=== PATIENT | female | born 1960 | race Caucasian/White ===

== ENCOUNTER 2018-10-11 05:51 | Day surgery (SDC) | payer BC, OTHER ==
[2018-10-05 13:35] LABS: URINE BILIRUBIN NEGATIVE (Negative); URINE BLOOD NEGATIVE (Negative); URINE CLARITY CLEAR; URINE COLOR YELLOW; URINE GLUCOSE-RANDOM* NEGATIVE (Negative); URINE KETONES NEGATIVE (Negative); URINE LEUKOCYTES-REFLEX NEGATIVE (Negative); URINE NITRITE-REFLEX NEGATIVE (Negative); URINE PROTEIN (DIPSTICK) NEGATIVE (Negative); URINE UROBILINOGEN 0.2 E.U./dl (0.2-1.0)
[2018-10-05 13:36] LABS: HEMATOCRIT 40.6 % (37.0-47.0); HEMOGLOBIN 13.9 gm/dL (12.0-15.0); MCH 33.4 pg (26.0-34.0); MCHC 34.3 g/dL (28.0-37.0); MCV 97.3 fL (80.0-100.0); RBC 4.17 mil/uL (4.20-5.00); RDW 12.6 % (10.5-14.5); WBC 6.1 thou/uL (4.0-11.0)
[2018-10-05 13:45] LABS: CALCIUM 9.2 mg/dL (8.5-10.1); CREATININE 0.7 mg/dL (0.6-1.0); POTASSIUM 4.1 mmol/L (3.5-5.1)
[2018-10-05 13:47] LABS: PROTIME 10.3 Seconds (9.3-11.4)
--- NOTE | 2018-10-09 07:40 | EKG ---
[address] [address] ELECTROCARDIOGRAM REPORT Name: CIARRA SHABAZZTHIDung Razo Room #: PRE IN [facility]#: [id number] Admission: Attend Phys: Kameron Thompson MD Discharge: Date of : 60 Report #: [id number] THIS REPORT FOR: //name// [facility] Test Date: 2018-10-05 Test Time: 13:30:37 Pat Name: SOPHIE SHABAZZ Department: Room: Gender: F Physical Integration Practitioner: Ashutosh EDMOND : 1960 Requested By: Kameron Thompson Order Number: [id number] MD: Keith Muller Measurements Intervals [place] Rate: 64 P: 70 W[place]: 149 QRS: 21 QRSD: 75 T: 42 QT: 400 QTc: 413 Interpretive Statements Sinus rhythm Normal tracing No previous ECG available for comparison Electronically Signed On 10-09-2018 7:40:50 CDT by Keith Muller [email or web address] <ELECTRONICALLY SIGNED> By: Keith Muller MD, [facility] 10/09/18 0740 1330 1330 Keith Muller MD, FACC /EPI
[~2018-10-11] VITALS: Ht 165.1 cm; Wt 66.7 kg
--- NOTE | ~2018-10-11 | O ---
[facility] [place] [address] OPERATIVE REPORT Name: SOPHIE SHABAZZ Room #: 150-2 [facility]..#: [id number] Admission: 10/11/18 Attend Phys: Kameron Thompson MD Discharge: Date of : 60 Report #: [id number] THIS REPORT FOR: //name// CC: Thor Patel Kameron Thompson DATE OF SERVICE: 10/11/2018 PREOPERATIVE DIAGNOSIS: Left hip osteoarthritis. POSTOPERATIVE DIAGNOSIS: Left hip osteoarthritis. PROCEDURE: Left total hip arthroplasty. SURGEON: Kameron Thompson MD DIRECTOR OF PROGRAM MANAGEMENT: Flaca Dominguez PA-C INDICATIONS FOR DIRECTOR OF PROGRAM MANAGEMENT: Throughout the case, extensive retraction and manipulation of the hip was required including dislocation and reduction. This was afforded to me by my media assistant. ANESTHESIA: General endotracheal. IMPLANTS: [employer] size 12 high offset Synergy press fit stem, a size 52 R3 acetabular cup with one acetabular screw and a size 36, +4 Oxinium head. ESTIMATED BLOOD LOSS: 50 mL. COMPLICATIONS: None. SPECIMENS: None. CONDITION UPON LEAVING THE OPERATING ROOM: Stable. INDICATIONS FOR PROCEDURE: The patient is a 58-year-old female with severe left hip osteoarthritis who failed conservative measures for this and after discussion with her, she elected for left total hip arthroplasty. DESCRIPTION OF PROCEDURE: Risks, benefits, alternatives, complications were discussed in detail with the patient including but not limited to risk of anesthesia, risk of damage to nerves, arteries, blood vessels, risk for infection, bleeding, risk for continued hip pain, leg length discrepancy, instability and need for reoperation. Informed consent was obtained from the patient. Left hip was appropriately marked in the preoperative holding area. IV Ancef was given for preoperative antibiotics. She was brought to the [address] [address] OPERATIVE REPORT Name: SOPHIE SHABAZZ Room #: 150-2 [facility] Jayjay#: [id number] Admission: 10/11/18 Attend Phys: Kameron Thompson MD Discharge: Date of : 60 Report #: [id number] operating room and placed in supine position on operating room table. General anesthesia was induced without complication. She was then placed in the right lateral decubitus position with the left hip uppermost. Left hip and lower extremity were prepped and draped in normal sterile fashion. Timeout was performed properly identifying the patient and procedure as well as the instrumentation and implants. All in the operating room were in agreement. Standard posterior approach to the hip was made with 10 blade through the skin. Dissection was taken down to fascia with Bovie cautery and the fascia was cleaned off with Monk elevator. Fresh 10 blade was used to make a fascial incision. This was taken proximally and distally with curved Singh scissor. Charnley retractor was placed. Trochanteric bursa was taken down with Bovie cautery. Piriformis tendon was identified, tagged and taken down with Bovie cautery. Short external rotators were also taken down with Bovie cautery. Capsulotomy was made and capsule ends were tagged for later repair. Hip was dislocated and there was extensive osteoarthritic change of the femoral head. Femoral neck cut was made 1 cm proximal to lesser trochanter based on preoperative templating and the femoral head was removed. Deep acetabular retractors were placed. Labrum was removed sharply. Pulvinar was removed with Bovie cautery. Acetabulum was then sequentially reamed up to a size 52, at which point, there was excellent bleeding cancellous bone. There was a large acetabular cyst in the superior anterior acetabulum. This was curetted out and bone grafted with reamings. A size 51 trial cup was placed, found to have a good fit. A final size 52 R3 acetabular cup was placed and seated. One acetabular screw was placed for backup fixation and the liner for a 36 head was placed. There were circumferential osteophytes around the acetabulum. These were removed with the curved osteotome. After this, attention was turned to the femur. This was reamed and broached up to a size 12, at which point a size 12 broach was stable, was trialed with a high offset neck and a 36+0 head. Hip was reduced, taken through range of motion, found to be stable, found to have somewhat short leg length on the left compared to the right. It was felt we could make up for this with the final implant. Hip was dislocated and broach was removed. A final size 12 high offset Synergy press fit stem was placed and seated. This was then trialed with a 36+4 head. Hip was reduced, taken through range of motion, found to be stable, found to have equal leg lengths. Hip was dislocated one last time and the trial head was removed. Final size 36, +4 Oxinium head was placed. Hip was reduced, taken through range of motion, found to be stable, found to have equal leg lengths. The hip was thoroughly irrigated with normal saline. A periarticular injection consisting of morphine, ropivacaine, epinephrine, Toradol was placed around the hip joint capsule. A gram of vancomycin was placed deep in the joint. The capsule and piriformis were repaired with 0 FiberWire. Fascia was closed with 0 Vicryl, skin was closed with 2-0 Vicryl, 3-0 Monocryl. Dermabond and a JAY dressing was [address] [place] [address] OPERATIVE REPORT Name: SOPHIE SHABAZZ Room #: 150-2 [facility] M.R.#: [id number] Admission: 10/11/18 Attend Phys: Kameron Thompson MD Discharge: Date of : 60 Report #: [id number] applied. The patient tolerated this procedure well and went to recovery room under care of anesthesia postoperatively. By: 0910 Kameron Thompson MD /nt
[~2018-10-11 05:51] MED LIST: ACCUNEB SO1.25 MG/1 INH; ADVAIR HFA 230M12 GM INH; CBD OIL TRANSDERM; FLONASE 0.05%50 MCG NASAL; SINGULAIR 10 MG10 M1 PO; VITAMIN D2000 UNIT PO
[2018-10-11 06:28] VITALS: BP 150/85
--- NOTE | 2018-10-11 16:51 | NUR ---
1120; ARRIVED TO FLOOR FROM PACU AWAKE, ALERT AND ORIENTED X 4. REASSESSMENT COMPLETED. PATIENT HAS NOT NEEDED ANY PAIN MEDICINE THIS AFTERNOON. TOLERATING DIET. VOIDED 200 ML WITHOUT DIFFICULTY. WALKED WITH PHYSICAL THERAPY AND GOT THE OK TO DISCHARGE HOME. PATIENT HAS ALREADY FILLED PRESCRIPTIONS PRIOR TO ADMISSION. AT BEDSIDE. 1 DOSE OF CEFAZOLIN GIVEN ORDERED. WILL CONTINUE TO PO ANTIBIOTIC AT HOME. PATIENT READY TO GO HOME. VERY PLEASANT AND COOPERATIVE PATIENT.
[2018-10-11 16:58] VITALS: BP 150/85
== END 2018-10-11 17:36 | disposition home or self-care (01) ==
LOC: OR 05:51 → TBA 06:26 → 4W 09:06 → EDSTATUS 10:41 → OR 10:43 → PRE 12:37 → OR 17:36 → ENTRNSPT 17:47
PROVIDERS: Orthopaedic Surgery
DX: M16.12 Unilateral primary osteoarthritis, left hip (principal); J45.909 Unspecified asthma, uncomplicated; Z87.891 Personal history of nicotine dependence; Z98.890 Other specified postprocedural states; Z79.899 Other long term (current) drug therapy; Z88.8 Allergy status to other drugs, medicaments and biological substances
CPT/HCPCS: 10047; 50010; 50101; 50382; 50414; 51771; 53000; 53078; 53368; 54118; 56524; 56527; 56528; 56530; 57095; 57103; 62110; 62900; 70005